=== PATIENT | female | born 1995 | race African-American/Black ===

== ENCOUNTER 2016-08-07 09:14 | Emergency (ER) | payer OTHER ==
[~2016-08-07 09:14] MED LIST: ACET50TA PO; IBUP80TA PO
--- NOTE | 2016-08-07 09:52 | EDDOCDS ---
Physician Documentation [facility] Name: Courtney Miramontes Age: 20 yrs Sex: Female : 1995 Arrival Date: 08/07/2016 Time: 09:14 Bed Triage 2 Private MD: Devon [facility] Disposition: 08/07/16 09:45 Discharged to Home/Self Care. Impression: Urinary tract infection, site not specified. - Condition is Stable. - Discharge Instructions: Urinary Tract Infection, [id number]. - Prescriptions for Cipro 500 mg Oral Tablet - take 1 tablet by ORAL route every 12 hours; 14 tablet. Pyridium 200 mg Oral Tablet - take 1 tablet by ORAL route every 8 hours for 3 days; 9 tablet. - Medication Reconciliation, Local Pharmacy Hours form. - Follow up: [facility] Devon; When: 1 - 2 days; Reason: Recheck today's complaints, Continuance of care. Follow up: Emergency Department; Reason: Worsening of conditions. - Problem is new. - Symptoms are unchanged. Historical: - Allergies: no known allergies; - Home Meds: 1. none - PMHx: none; - PSHx: none; - Social history: Smoking status: Patient states was never smoker of tobacco. No barriers to communication noted, The patient speaks fluent Austrian, Speaks appropriately for age. - Family history: Not pertinent. - : The pt / caregiver states he / she is not on anticoagulants. Home medication list is obtained from the patient. - Exposure Risk Screening:: None identified. 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 0 in. (152.40 cm) (R); Pain 4/10; 09:17 Body Mass Index 31.25 (72.57 kg, 152.40 cm) nb2 MDM: 09:23 Urine Dip ordered. ef1 09:23 UCG by Nursing ordered. ef1 09:24 Urine Culture Ordered. EDMS 09:32 Financial registration complete. [facility] 09:39 [facility] Payment Agreement was scanned into [employer] and attached to record. [email or web address] Point of Care Testing: Urine : 09:35 hCG Reading: Negative; Control Reading: Positive; dsf Urine Dip: 09:26 pH: 5; ; Specific [place]: 1.020; Ketones: Negative; Glucose: Negative; Protein: Trace; dsf Leukocytes: Positive (+); Nitrite: Negative ; Blood: Negative; Bilirubin: Negative ; Urobilinogen: Normal Ranges: Signatures: Dispatcher [employer] EDMS Kylee Cee, DELILAH PADelgado ef1 Karo Charles RN RN dsf Adali Lopes, Reg Reg ks16 The chart was reviewed and I authenticate all verbal orders and agree with the evaluation and treatment provided.Attachments: 09:39 [facility] Payment Agreement [email or web address] MTDD
--- NOTE | 2016-08-07 09:52 | EDDOCDS ---
Nurse's Notes [facility] Name: Courtney Miramontes Age: 20 yrs Sex: Female : 1995 Arrival Date: 08/07/2016 Time: 09:14 Bed Triage 2 Private MD: JOSE Osorio Diagnosis: Urinary tract infection, site not specified Presentation: 08/07 09:19 Presenting complaint: Patient states: urinary urgency and burning with urination since dsf this morning. Adult Sepsis Screening: The patient does not have new or worsening altered mentation. Patient's respiratory rate is less than 22. Systolic blood pressure is greater than 100. Patient has a qSOFA score of 0- Negative Sepsis Screen. Suicide/Homicide risk assessment- the patient denies having any suicidal and/or homicidal ideations and does not present with any other emotional, behavioral or mental health complaints. Status: The patient is a dependent. Transition of care: patient was not received from another setting of care. 09:19 Acuity: KONRAD Level 4 dsf 09:19 Method Of Arrival: Walkin/Carried/Asstd dsf Triage Assessment: 09:20 General: Appears in no apparent distress, Behavior is appropriate for age, cooperative. dsf Pain: Location: groin Pain currently is 4 out of 10 on a pain scale. Quality of pain is described as pressure. HIV screening NA for this visit Offered previously. : Reports burning with urination since this morning urgency since this morning. 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 none - PMHx: none; - PSHx: none; - Social history: Smoking status: Patient states was never smoker of tobacco. No barriers to communication noted, The patient speaks fluent Turkmen, Speaks appropriately for age. - Family history: Not pertinent. - : The pt / caregiver states he / she is not on anticoagulants. Home medication list is obtained from the patient. - Exposure Risk Screening:: None identified. Screenin:50 Screening information is obtained from the patient. Fall risk: No risks identified. dsf Assistance ADL's: requires no assistance with activities of daily living. Abuse/DV Screen: The patient / caregiver reports he/she is: not in a situation that causes fear, pain or injury. Nutritional screening: No deficits noted. Advance Directives: Currently, there is no health care proxy. home support is adequate. Assessment: 09:50 General: Appears in no apparent distress, Behavior is appropriate for age, cooperative. dsf Neurological: Level of Consciousness is awake, alert. Cardiovascular: Capillary refill < 3 seconds. Respiratory: Airway is patent Respiratory effort is even, unlabored, Respiratory pattern is regular, symmetrical. Derm: Skin is pink, warm & dry. Vital Signs: 09:17 BP 129 / 83; Pulse 106; Resp 18; Temp 97.9(O); Pulse Ox 98% ; Weight 72.57 kg (R); nb2 Height 5 ft. 0 in. (152.40 cm) (R); Pain 4/10; 09:17 Body Mass Index 31.25 (72.57 kg, 152.40 cm) 2 Vitals: 09:17 Log In Time: August 07, 2016 at 09:13. 2 ED Course: 09:16 Patient visited by Elena Graham. nb2 09:16 [place] [facility] is Private Physician. nb2 09:16 Patient moved to Waiting nb2 09:18 Patient visited by Elena Graham. nb2 09:18 Patient moved to Pre RCE nb2 09:19 Triage Initiated dsf 09:21 Kylee Cee PA-C is PHCP. ef1 09:21 Sherry Vázquez MD is Attending Physician. ef1 09:21 Patient visited by Kylee Cee PA-C. ef1 09:21 Patient moved to Triage 2 dsf 09:31 Urine Culture Sent. kr3 09:39 [facility] Payment Agreement was scanned into [employer] and attached to record. [email or web address] 09:45 [place] [facility] is Referral Physician. ef1 09:50 The patient / caregiver is instructed regarding the plan of care and ED course. dsf 09:50 No IV's were initiated during this patient's visit. No procedures done that require dsf assistance. Point of Care Testing: Urine : 09:35 hCG Reading: Negative; Control Reading: Positive; dsf Urine Dip: 09:26 pH: 5; ; Specific [place]: 1.020; Ketones: Negative; Glucose: Negative; Protein: Trace; dsf Leukocytes: Positive (+); Nitrite: Negative ; Blood: Negative; Bilirubin: Negative ; Urobilinogen: Normal Ranges: Order Results: There are currently no results for this order. Outcome: 09:45 Discharge ordered by Provider. ef1 09:50 Discharge Assessment: Patient awake, alert and oriented x 3. No cognitive and/or dsf functional deficits noted. Patient verbalized understanding of disposition instructions. patient administered narcotics - no. The following High Risk Discharge criteria are identified: None. Discharged to home ambulatory. Condition: stable. Discharge instructions given to patient, Instructed on discharge instructions, follow up and referral plans. medication usage, Demonstrated understanding of instructions, medications, Pt was receptive of discharge instructions/ teaching. Prescriptions given X 2. No special radiology studies were completed. Property sent home with patient. 09:51 Patient left the ED. dsf Signatures: Nilam Barriga,RN RN kr3 Kylee Cee, PALizzethC DELILAH ef1 Karo Charles RN RN judithf Adali Lopes, Reg Reg ks16 Elena Graham2 [place]ACORTA
--- NOTE | 2016-08-09 10:52 | EDDOCDS ---
Physician Documentation [facility] Name: Courtney Miramontes Age: 20 yrs Sex: Female : 1995 Arrival Date: 08/07/2016 Time: 09:14 Bed Triage 2 Private MD: Devon [place] Disposition: 08/07/16 09:45 Discharged to Home/Self Care. Impression: Urinary tract infection, site not specified. - Condition is Stable. - Discharge Instructions: Urinary Tract Infection, [id number]. - Prescriptions for Cipro 500 mg Oral Tablet - take 1 tablet by ORAL route every 12 hours; 14 tablet. Pyridium 200 mg Oral Tablet - take 1 tablet by ORAL route every 8 hours for 3 days; 9 tablet. - Medication Reconciliation, Local Pharmacy Hours form. - Follow up: [place] Devon; When: 1 - 2 days; Reason: Recheck today's complaints, Continuance of care. Follow up: Emergency Department; Reason: Worsening of conditions. - Problem is new. - Symptoms are unchanged. Historical: - Allergies: no known allergies; - Home Meds: 1. none - PMHx: none; - PSHx: none; - Social history: Smoking status: Patient states was never smoker of tobacco. No barriers to communication noted, The patient speaks fluent Kuwaiti, Speaks appropriately for age. - Family history: Not pertinent. - : The pt / caregiver states he / she is not on anticoagulants. Home medication list is obtained from the patient. - Exposure Risk Screening:: None identified. 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 0 in. (152.40 cm) (R); Pain 4/10; 09:17 Body Mass Index 31.25 (72.57 kg, 152.40 cm) nb2 MDM: 09:23 Urine Dip ordered. ef1 09:23 UCG by Nursing ordered. ef1 09:24 Urine Culture Ordered. EDMS 09:32 Financial registration complete. [email or web address] 09:39 [facility] Payment Agreement was scanned into [employer] and attached to record. ks16 13:53 T-Sheet-- Draft Copy was scanned into [employer] and attached to record. Point of Care Testing: Urine : 09:35 hCG Reading: Negative; Control Reading: Positive; dsf Urine Dip: 09:26 pH: 5; ; Specific [place]: 1.020; Ketones: Negative; Glucose: Negative; Protein: Trace; dsf Leukocytes: Positive (+); Nitrite: Negative ; Blood: Negative; Bilirubin: Negative ; Urobilinogen: Normal Ranges: Signatures: Dispatcher [employer] EDMS Jazz Krishna, Reg Reg gb Kylee Cee PA-C PADelgado ef1 Karo Charles RN RN dsf Adali Lopes, Reg Reg ks16 The chart was reviewed and I authenticate all verbal orders and agree with the evaluation and treatment provided.Attachments: 09:39 [facility] Payment Agreement [email or web address] 13:53 T-Sheet-- Draft Copy Chart Complete MTDD
--- NOTE | 2016-08-09 10:52 | EDDOCDS ---
Nurse's Notes [facility] Name: Courtney Miramontes Age: 20 yrs Sex: Female : 1995 Arrival Date: 08/07/2016 Time: 09:14 Bed Triage 2 Private MD: JOSE Osorio Diagnosis: Urinary tract infection, site not specified Presentation: 08/07 09:19 Presenting complaint: Patient states: urinary urgency and burning with urination since dsf this morning. Adult Sepsis Screening: The patient does not have new or worsening altered mentation. Patient's respiratory rate is less than 22. Systolic blood pressure is greater than 100. Patient has a qSOFA score of 0- Negative Sepsis Screen. Suicide/Homicide risk assessment- the patient denies having any suicidal and/or homicidal ideations and does not present with any other emotional, behavioral or mental health complaints. Status: The patient is a dependent. Transition of care: patient was not received from another setting of care. 09:19 Acuity: KONRAD Level 4 dsf 09:19 Method Of Arrival: Walkin/Carried/Asstd dsf Triage Assessment: 09:20 General: Appears in no apparent distress, Behavior is appropriate for age, cooperative. dsf Pain: Location: groin Pain currently is 4 out of 10 on a pain scale. Quality of pain is described as pressure. HIV screening NA for this visit Offered previously. : Reports burning with urination since this morning urgency since this morning. 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 none - PMHx: none; - PSHx: none; - Social history: Smoking status: Patient states was never smoker of tobacco. No barriers to communication noted, The patient speaks fluent North Korean, Speaks appropriately for age. - Family history: Not pertinent. - : The pt / caregiver states he / she is not on anticoagulants. Home medication list is obtained from the patient. - Exposure Risk Screening:: None identified. Screenin:50 Screening information is obtained from the patient. Fall risk: No risks identified. dsf Assistance ADL's: requires no assistance with activities of daily living. Abuse/DV Screen: The patient / caregiver reports he/she is: not in a situation that causes fear, pain or injury. Nutritional screening: No deficits noted. Advance Directives: Currently, there is no health care proxy. home support is adequate. Assessment: 09:50 General: Appears in no apparent distress, Behavior is appropriate for age, cooperative. dsf Neurological: Level of Consciousness is awake, alert. Cardiovascular: Capillary refill < 3 seconds. Respiratory: Airway is patent Respiratory effort is even, unlabored, Respiratory pattern is regular, symmetrical. Derm: Skin is pink, warm & dry. Vital Signs: 09:17 BP 129 / 83; Pulse 106; Resp 18; Temp 97.9(O); Pulse Ox 98% ; Weight 72.57 kg (R); nb2 Height 5 ft. 0 in. (152.40 cm) (R); Pain 4/10; 09:17 Body Mass Index 31.25 (72.57 kg, 152.40 cm) 2 Vitals: 09:17 Log In Time: August 07, 2016 at 09:13. 2 ED Course: 09:16 Patient visited by Elena Graham. nb2 09:16 Osorio, [facility] is Private Physician. nb2 09:16 Patient moved to Waiting nb2 09:18 Patient visited by Elena Graham. nb2 09:18 Patient moved to Pre RCE nb2 09:19 Triage Initiated dsf 09:21 Kylee Cee PA-C is PHCP. ef1 09:21 Sherry Vázquez MD is Attending Physician. ef1 09:21 Patient visited by Kylee Cee PA-C. ef1 09:21 Patient moved to Triage 2 dsf 09:31 Urine Culture Sent. kr3 09:39 [facility] Payment Agreement was scanned into [employer] and attached to record. ks16 09:45 [place] [facility] is Referral Physician. ef1 09:50 The patient / caregiver is instructed regarding the plan of care and ED course. dsf 09:50 No IV's were initiated during this patient's visit. No procedures done that require dsf assistance. 13:53 T-Sheet-- Draft Copy was scanned into [employer] and attached to record. Point of Care Testing: Urine : 09:35 hCG Reading: Negative; Control Reading: Positive; dsf Urine Dip: 09:26 pH: 5; ; Specific [place]: 1.020; Ketones: Negative; Glucose: Negative; Protein: Trace; dsf Leukocytes: Positive (+); Nitrite: Negative ; Blood: Negative; Bilirubin: Negative ; Urobilinogen: Normal Ranges: Order Results: Lab Order: Urine Culture; SPEC'M 08/07/16 09:27 Test: URINE CULTURE; Value: <EXTERNAL COMMENT eCWMed> FULL REPORT IN LAB NOTES (eCW and Medent).; Status: F Test: URINE CULTURE; Value: URINE CULTURE RESULT; Status: F Test: URINE CULTURE; Value: NO GROWTH CLINICAL SIGNIFICANCE 2 OR MORE ORGANISMS; Status: F Outcome: 09:45 Discharge ordered by Provider. ef1 09:50 Discharge Assessment: Patient awake, alert and oriented x 3. No cognitive and/or dsf functional deficits noted. Patient verbalized understanding of disposition instructions. patient administered narcotics - no. The following High Risk Discharge criteria are identified: None. Discharged to home ambulatory. Condition: stable. Discharge instructions given to patient, Instructed on discharge instructions, follow up and referral plans. medication usage, Demonstrated understanding of instructions, medications, Pt was receptive of discharge instructions/ teaching. Prescriptions given X 2. No special radiology studies were completed. Property sent home with patient. 09:51 Patient left the ED. dsf Signatures: Jazz Krishna, Reg Reg gb Nilam Barriga,RN RN [email or web address] Kylee Cee PALizzethC PADelgado ef1 Karo Charles RN RN dsf Adali Lopes, Reg Reg ks16 Elena Graham2 Chart Complete MTDD
--- NOTE | 2016-08-09 10:52 | EDDOCDS ---
Physician Documentation [facility] Name: Courtney Miramontes Age: 20 yrs Sex: Female : 1995 Arrival Date: 08/07/2016 Time: 09:14 Bed Triage 2 Private MD: [place] [facility] Disposition: 08/07/16 09:45 Discharged to Home/Self Care. Impression: Urinary tract infection, site not specified. - Condition is Stable. - Discharge Instructions: Urinary Tract Infection, [id number]. - Prescriptions for Cipro 500 mg Oral Tablet - take 1 tablet by ORAL route every 12 hours; 14 tablet. Pyridium 200 mg Oral Tablet - take 1 tablet by ORAL route every 8 hours for 3 days; 9 tablet. - Medication Reconciliation, Local Pharmacy Hours form. - Follow up: [facility] Devon; When: 1 - 2 days; Reason: Recheck today's complaints, Continuance of care. Follow up: Emergency Department; Reason: Worsening of conditions. - Problem is new. - Symptoms are unchanged. Historical: - Allergies: no known allergies; - Home Meds: 1. none - PMHx: none; - PSHx: none; - Social history: Smoking status: Patient states was never smoker of tobacco. No barriers to communication noted, The patient speaks fluent Scottish, Speaks appropriately for age. - Family history: Not pertinent. - : The pt / caregiver states he / she is not on anticoagulants. Home medication list is obtained from the patient. - Exposure Risk Screening:: None identified. 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 0 in. (152.40 cm) (R); Pain 4/10; 09:17 Body Mass Index 31.25 (72.57 kg, 152.40 cm) nb2 MDM: 09:23 Urine Dip ordered. ef1 09:23 UCG by Nursing ordered. ef1 09:24 Urine Culture Ordered. EDMS 09:32 Financial registration complete. [email or web address] 09:39 [facility] Payment Agreement was scanned into [employer] and attached to record. [email or web address] 13:53 T-Sheet-- Draft Copy was scanned into [employer] and attached to record. Point of Care Testing: Urine : 09:35 hCG Reading: Negative; Control Reading: Positive; dsf Urine Dip: 09:26 pH: 5; ; Specific [place]: 1.020; Ketones: Negative; Glucose: Negative; Protein: Trace; dsf Leukocytes: Positive (+); Nitrite: Negative ; Blood: Negative; Bilirubin: Negative ; Urobilinogen: Normal Ranges: Signatures: Dispatcher [employer] EDMS Jazz Krishna, Reg Reg gb Kylee Cee PA-C PADelgado ef1 Karo Charles RN RN dsf Adali Lopes, Reg Reg ks16 The chart was reviewed and I authenticate all verbal orders and agree with the evaluation and treatment provided.Attachments: 09:39 [facility] Payment Agreement [email or web address] 13:53 T-Sheet-- Draft Copy Chart Complete MTDD
== END 2016-08-07 09:51 | disposition home or self-care (01) ==
LOC: M ED 09:14
DX: N39.0 Urinary tract infection, site not specified (principal)

== ENCOUNTER → 2016-09-03 | Emergency (ER) | payer OTHER ==
[~2016-09-03] VITALS: Ht 152.4 cm; Wt 72.6 kg
[~2016-09-03] MED LIST changes: +ZOFR4TAB3 PO
[2016-09-03 11:11] VITALS: BP 123/80
[2016-09-03] MEDS: ONDANSETRON 4 MG ORAL DISINTEGRATING TAB (S0181) PO ONE (12:32)
== END | disposition home or self-care (01) ==
LOC: M ED 12:47
DX: R11.2 Nausea with vomiting, unspecified (principal); R19.7 Diarrhea, unspecified

== ENCOUNTER → 2016-10-08 | Outpatient (REF) | payer OTHER | LOC: M SFHCLERA 18:49 | PROVIDERS: ATTEND Nurse Practitioner Family | DX: N89.8 Other specified noninflammatory disorders of vagina (principal); N91.2 Amenorrhea, unspecified | CPT/HCPCS: 84702; 87086; 87491; 87591; G0463 ==

== ENCOUNTER 2016-10-21 14:39 | Emergency (ER) | payer OTHER ==
[~2016-10-21] VITALS: Ht 152.4 cm; Wt 77.1 kg
[2016-10-21] MEDS ORDERED: cefTRIAXone SOD 250 MG VIAL (J0696) IM ONE (15:15)
[2016-10-21] MEDS ORDERED: AZITHROMYCIN 250 MG TAB PO ONE (15:15)
[2016-10-21] MEDS ORDERED: FLAG500T PO (15:38)
[2016-10-21 15:51] VITALS: BP 116/65
== END 2016-10-21 16:00 | disposition home or self-care (01) ==
LOC: M ED 15:30
DX: N76.0 Acute vaginitis (principal)
CPT/HCPCS: 87210; 87491; 87591; 96372; 99284; J0696

== ENCOUNTER 2016-12-10 23:01 | Emergency (ER) | payer OTHER ==
[~2016-12-10] VITALS: Ht 152.4 cm; Wt 78.0 kg
[~2016-12-10 23:01] MED LIST changes: +FLAG500T PO
[2016-12-11 00:33] VITALS: BP 121/75
== END 2016-12-11 00:37 | disposition home or self-care (01) ==
LOC: M ED 12-11 00:25
DX: S00.81XA Abrasion of other part of head, initial encounter (principal); Y04.8XXA Assault by other bodily force, initial encounter; Y92.9 Unspecified place or not applicable; Y93.9 Activity, unspecified; Y99.9 Unspecified external cause status

== ENCOUNTER 2017-06-21 18:37 | Emergency (ER) | payer OTHER ==
[2017-06-21 19:27] LABS: CONTROL LINE UCG INT CTR LINE PRESENT; URINE PREG TEST NEGATIVE (NEGATIVE)
[2017-06-21 19:39] LABS: KETONE, URINE AUTO RFX NEGATIVE (NEGATIVE); LEUKOCYTE ESTERASE UR AUTO RFX 3+ (NEGATIVE); NITRITE, URINE AUTO RFX NEGATIVE (NEGATIVE); RBC, URINE AUTO RFX TNTC /HPF (0-3); SQUAM EPITHELIAL CELL UR AURFX 1 /HPF (0-6); WBC, URINE AUTO RFX TNTC /HPF (0-3)
[2017-06-21] MEDS: PHENAZOPYRIDINE 100 MG TAB PO (20:30)
[2017-06-21] MEDS: CIPROFLOXACIN 500 MG TAB PO (20:30)
== END 2017-06-21 20:59 | disposition home or self-care (01) ==
LOC: M ED 18:37
DX: N39.0 Urinary tract infection, site not specified (principal)
CPT/HCPCS: 84703

== ENCOUNTER 2017-09-19 13:35 | Emergency (ER) | payer MEDICAID, OTHER ==
[2017-09-19 14:22] LABS: KETONE, URINE AUTO RFX NEGATIVE (NEGATIVE); LEUKOCYTE ESTERASE UR AUTO RFX 3+ (NEGATIVE); MUCUS, URINE RFX SMALL (NEGATIVE); NITRITE, URINE AUTO RFX NEGATIVE (NEGATIVE); RBC, URINE AUTO RFX 53 /HPF (0-3); SPECIFIC GRAVITY UR AUTO RFX 1.021 (1.002-1.035); SQUAM EPITHELIAL CELL UR AURFX 2 /HPF (0-6); WBC, URINE AUTO RFX 159 /HPF (0-3)
== END 2017-09-19 15:58 | disposition home or self-care (01) ==
LOC: M ED 13:35
DX: N30.00 Acute cystitis without hematuria (principal)
CPT/HCPCS: 81001

== ENCOUNTER 2017-10-05 07:06 | Emergency (ER) | payer MEDICAID ==
[2017-10-05] MEDS: ONDANSETRON 4 MG ORAL DISINTEGRATING TAB (S0181) PO (07:55)
[2017-10-05 09:06] LABS: CONTROL LINE HCG INT CTR LINE PRESENT; HCG, SERUM QUALITATIVE NEGATIVE (NEGATIVE)
== END 2017-10-05 09:43 | disposition home or self-care (01) ==
LOC: M ED 07:06
DX: A08.4 Viral intestinal infection, unspecified (principal); R11.2 Nausea with vomiting, unspecified; R19.7 Diarrhea, unspecified; O90.6 Postpartum mood disturbance
CPT/HCPCS: 84703

== ENCOUNTER 2017-10-28 09:48 | Emergency (ER) | payer MEDICAID ==
[2017-10-28] MEDS: SUMAtriptan SUCCINATE 6 MG/0.5 ML VIAL SC (10:34)
[2017-10-28] MEDS: ONDANSETRON 4 MG ORAL DISINTEGRATING TAB (Q0162 PER 1MG) PO (10:34)
[2017-10-28 10:40] LABS: BASO # 0.1 10^3/uL (0.0-0.2); EOS # 0.1 10^3/uL (0.0-0.50); EOS % 1.9 % (0.0-3.0); HEMATOCRIT 39.2 % (36.0-47.0); HEMOGLOBIN 13.3 g/dl (12.0-15.5); IMMATURE GRANULOCYTE % 0.1 % (0-3.0); LYMPH # 2.9 10^3/uL (1.5-6.5); LYMPH % 41.4 % (24.0-44.0); MEAN CORPUSCULAR HEMOGLOBIN 29.3 pg (27.0-33.0); MEAN CORPUSCULAR HGB CONC 33.9 g/dl (32.0-36.5); MEAN CORPUSCULAR VOLUME 86.3 fl (80.0-96.0); MONO # 0.5 10^3/uL (0.0-0.8); MONO % 7.5 % (0.0-5.0); NEUTROPHILS # 3.3 10^3/uL (1.8-7.7); NEUTROPHILS % 48.1 % (36.0-66.0); PLATELET COUNT, AUTOMATED 263 10^3/uL (150-450); RED BLOOD COUNT 4.54 10^6/uL (4.00-5.40)
[2017-10-28 10:55] LABS: CONTROL LINE HCG INT CTR LINE PRESENT; HCG, SERUM QUALITATIVE NEGATIVE (NEGATIVE)
[2017-10-28 11:00] LABS: ANION GAP 6 MEQ/L (8-16); BLOOD UREA NITROGEN 11 MG/DL (7-18); C REACTIVE PROTEIN QUANTITATIV < 0.30 MG/DL (0.00-0.30); CALCIUM LEVEL 8.6 MG/DL (8.5-10.1); CARBON DIOXIDE LEVEL 27 MEQ/L (21-32); CHLORIDE LEVEL 107 MEQ/L (98-107); CREATININE FOR GFR 0.85 MG/DL (0.55-1.30); GLOMERULAR FILTRATION RATE > 60.0 (>60); GLUCOSE, FASTING 92 MG/DL (70-100); POTASSIUM SERUM 3.6 MEQ/L (3.5-5.1); SODIUM LEVEL 140 MEQ/L (136-145)
== END 2017-10-28 11:28 | disposition home or self-care (01) ==
LOC: M ED 09:48
DX: G43.109 Migraine with aura, not intractable, without status migrainosus (principal); R11.0 Nausea
CPT/HCPCS: Q0162

== ENCOUNTER → 2017-12-07 | Outpatient (REF) | payer OTHER ==
[2017-12-07 22:33] LABS: CHLAMYDIA DNA AMPLIFICATION POSITIVE (NEGATIVE); GC DNA AMPLIFICATION NEGATIVE (NEGATIVE)
== END ==
LOC: M SFHCLERA 15:17
DX: N89.8 Other specified noninflammatory disorders of vagina (principal); R31.9 Hematuria, unspecified

== ENCOUNTER 2017-12-08 20:45 | Emergency (ER) | payer OTHER ==
[2017-12-08] MEDS: cefTRIAXone SOD 500 MG VIAL (J0696) IM ×2 (22:30)
[2017-12-08] MEDS ORDERED: LIDOCAINE 1% MDV 20ML VIAL As Ordered ×2 (22:40)
[2017-12-08] MEDS: AZITHROMYCIN 250 MG TAB PO ×2 (22:43)
== END 2017-12-08 23:01 | disposition home or self-care (01) ==
LOC: M ED 20:45
DX: A74.9 Chlamydial infection, unspecified (principal); Z86.19 Personal history of other infectious and parasitic diseases; R51 Headache; Z87.440 Personal history of urinary (tract) infections; Z79.899 Other long term (current) drug therapy
CPT/HCPCS: J0696

== ENCOUNTER → 2018-02-16 | Outpatient (REF) | payer OTHER ==
[2018-02-23 00:06] LABS: VITAMIN D 1,25 DIHYDROXY 47.6 pg/mL (19.9-79.3)
== END ==
LOC: M SFHCLERA 17:14
DX: N91.2 Amenorrhea, unspecified (principal)
CPT/HCPCS: 84443

== ENCOUNTER → 2018-04-09 | Outpatient (REF) | payer OTHER ==
[2018-04-09 23:51] LABS: CHLAMYDIA DNA AMPLIFICATION NEGATIVE (NEGATIVE); GC DNA AMPLIFICATION NEGATIVE (NEGATIVE)
== END ==
LOC: M SFHCLERA 11:30
DX: R30.0 Dysuria (principal)